=== PATIENT | male | born 1995 | race Caucasian/White ===

== ENCOUNTER 2017-10-16 12:04 | Emergency (ER) | payer MEDICAID, SELFPAY, OTHER | END 2017-10-16 13:11 | disposition home or self-care (01) | LOC: M ED 12:04 | DX: M67.431 Ganglion, right wrist (principal) | CPT/HCPCS: 99283 ==

== ENCOUNTER 2017-11-21 03:05 | Emergency (ER) | payer MEDICAID, OTHER ==
[2017-11-21] MEDS: ONDANSETRON 4MG/2ML VIAL (J2405) IV (07:30)
== END 2017-11-21 10:03 | disposition home or self-care (01) ==
LOC: M ED 03:05
DX: A08.4 Viral intestinal infection, unspecified (principal)
CPT/HCPCS: J2405